=== PATIENT | female | born 1985 | race Caucasian/White ===

== ENCOUNTER 2022-10-01 09:00 | Outpatient (CLI) | payer OTHER ==
--- NOTE | 2022-10-01 13:22 | XRAY Report ---
PROCEDURE: Lumbar Spine 2 View INDICATIONS: CONTUSION OF LOWER BACK TECHNIQUE: 2 views of the lumbar spine were acquired. COMPARISON: None. FINDINGS: Bones: 5 [id number] vertebrae are present. There is normal bony alignment. No vertebral body compression fractures. No suspicious bony lesions. Soft tissues: Overlying bowel gas pattern is normal. No suspicious soft tissue calcifications. IMPRESSION: Normal lumbar spine radiographs Reviewed by: Navi Allison MD on 10/01/2022 12:21 PM [place] Approved by: Navi Allison MD on 10/01/2022 12:21 PM [place] Station ID: [id number]
--- NOTE | 2022-10-01 13:23 | XRAY Report ---
PROCEDURE: Hip w/Pelvis 1V RT INDICATIONS: CONTUSION OF LEFT HIP TECHNIQUE: AP pelvis with lateral view(s) of the right hip(s). COMPARISON: None. FINDINGS: Bones: No fractures or dislocations. Pelvic ring appears intact. No suspicious bony lesions. Soft tissues: The visualized bowel gas pattern is normal. No suspicious soft tissue calcifications. IMPRESSION: Normal right hip radiographs Reviewed by: Navi Allison MD on 10/01/2022 12:22 PM [place] Approved by: Navi Allison MD on 10/01/2022 12:22 PM [place] Station ID: [id number]
--- NOTE | 2022-10-01 13:24 | XRAY Report ---
PROCEDURE: Ankle 3 View RT INDICATIONS: RIGHT ANKLE SPRAIN TECHNIQUE: 3 views of the ankle were acquired. COMPARISON: None FINDINGS: Bones: No fractures or dislocations. Ankle mortise is normally aligned. No suspicious bony lesions . Soft tissues: No tibiotalar joint effusion. Achilles tendon appears normal. IMPRESSION: Normal right ankle radiographs Reviewed by: Navi Allison MD on 10/01/2022 12:22 PM [facility] Approved by: Navi Allison MD on 10/01/2022 12:22 PM [facility] Station ID: [id number]
== END 2022-10-01 09:01 | disposition home or self-care (01) ==
LOC: DI.S 09:00
PROVIDERS: ATTEND Physician Assistant Medical
DX: S30.0XXA Contusion of lower back and pelvis, initial encounter (principal); S70.01XA Contusion of right hip, initial encounter; S93.401A Sprain of unspecified ligament of right ankle, initial encounter